=== PATIENT | male | born 1945 | race Caucasian/White ===

== ENCOUNTER 2018-12-27 05:25 | Day surgery (SDC) | payer OTHER ==
[~2018-12-27 05:25] MED LIST: ALTACE10 MG PO; AMILODIPINE PO; CLOPIDOGREL BIS75 MG PO; FEOSOL325 MG PO; LEVOTHY PO; QUETIAPINE FUMA25 MG PO; ZOCOR20 MG PO
== END 2018-12-27 16:45 | disposition home or self-care (01) ==
LOC: CIR.AMB 05:25
DX: M24.542 Contracture, left hand (principal)